=== PATIENT | male | born 1960 | race Caucasian/White ===

== ENCOUNTER 2016-11-30 13:46 | Emergency (ER) | payer OTHER ==
[2016-11-30 13:52] VITALS: TEMP 98.1
[2016-11-30 14:13] LABS: COLOR YELLOW; LEUKOCYTE ESTERASE,URINE NEGATIVE (NEGATIVE); NITRITE,URINE NEGATIVE (NEGATIVE)
--- NOTE | 2016-11-30 14:28 | EDPHY ---
H & P Time Seen by Provider: 11/30/16 14:11 HPI/ROS: Chief complaint. Abdominal pain HPI. 56-year-old male with left flank pain and left abdominal pain that began at 3:00 a.m.. It awoke him from sleep. Initially he thought it was a pulled muscle however did not injure himself doing his usual work out last evening. No pain with twisting or movement. He can't get comfortable. No urinary symptoms. No fever. No vomiting or diarrhea. He has a history of kidney stones and this feels similar. ROS Constitutional. no fever/chills, no weakness Eyes. no problems with vision ENT. no sore throat, no nasal drainage Cardiovascular. no chest pain Respiratory. no shortness of breath, no cough Abdominal. Left flank pain . no problems urinating MS. no calf pain/swelling, no neck/back pain, no joint pain Skin. no rash Lymph. no swollen glands Neuro. no headache, no dizziness, no difficulty walking or with speech Past Medical/Surgical History: Past medical history the kidney stones, prostatitis Social History: , nonsmoker, no alcohol Smoking Status: Never smoked Physical Exam: General Appearance: Alert well-developed male mild distress vital signs are stay Eyes: Pupils equal and round no pallor or injection. ENT, Mouth: Mucous membranes are moist. Respiratory: There are no retractions, lungs are clear to auscultation. Cardiovascular: Regular rate and rhythm. Gastrointestinal: Abdomen is soft and nontender, no masses, bowel sounds normal. Patient shows me tenderness to the left flank area however palpation of this area elicits no tenderness Neurological: Awake and alert, sensory and motor exams grossly normal. Skin: Warm and dry, no rashes. Musculoskeletal: Neck is supple nontender. Extremities symmetrical, full range of motion. Psychiatric: Patient is oriented X 3, there is no agitation. Constitutional: Initial Vital Signs Temperature (C) 36.7 C 11/30/16 13:49 Heart Rate 54 L 11/30/16 13:49 Respiratory Rate 16 11/30/16 13:49 Blood Pressure 134/58 H 11/30/16 13:49 O2 Sat (%) 97 11/30/16 13:49 O2 Delivery Mode Room Air Allergies/Adverse Reactions: No Known Allergies Allergy (Verified 11/30/16 13:47) Home Medications: Medication Instructions Recorded NK [No Known Home Meds] 11/30/16 Medical Decision Making - Diagnostics Imaging: Noncontrast CT abdomen and pelvis reviewed and discussed with Dr. Neely is consistent with constipation. The patient has slightly calcified aorta without evidence of aneurysm or dissection, normal appendix, a right-sided disc herniation in the lumbar spine. There is no evidence for kidney stone Procedures: IV normal saline. Patient declines medication at this time ED Course/Re-evaluation: Re-evaluation at 3:10 p.m. patient is stable. The patient and I discussed lab and imaging study results. We discussed treatment plan including criteria for return and importance of follow-up and further evaluation. He expresses understanding and agreement Differential Diagnosis: Certainly I thought the patient was likely to have kidney stone. I considered pyelonephritis, diverticulitis, abdominal aortic aneurysm. This appears to be constipation and the patient has normal labs and imaging study that is consistent with constipation and does not show an alternative diagnosis - Data Points Laboratory Results: Laboratory Results 11/30/16 14:20 11/30/16 14:20 11/30/16 11/30/16 14:20 13:50 WBC 5.63 10^3/uL (3.80-9.50) RBC 4.99 10^6/uL (4.40-6.38) Hgb 16.0 g/dL (13.7-17.5) Hct 47.1 % (40.0-51.0) MCV 94.4 fL (81.5-99.8) MCH 32.1 pg (27.9-34.1) MCHC 34.0 g/dL (32.4-36.7) RDW 12.3 % (11.5-15.2) Plt Count 197 10^3/uL (150-400) MPV 9.5 fL (8.7-11.7) Neut % (Auto) 65.5 % (39.3-74.2) Lymph % (Auto) 25.6 % (15.0-45.0) [place] % (Auto) 6.7 % (4.5-13.0) Eos % (Auto) 1.1 % (0.6-7.6) Baso % (Auto) 0.7 % (0.3-1.7) Nucleat RBC Rel Count 0.0 % (0.0-0.2) Absolute Neuts (auto) 3.69 10^3/uL (1.70-6.50) Absolute Lymphs (auto) 1.44 10^3/uL (1.00-3.00) Absolute Monos (auto) 0.38 10^3/uL (0.30-0.80) Absolute Eos (auto) 0.06 10^3/uL (0.03-0.40) Absolute Basos (auto) 0.04 10^3/uL (0.02-0.10) Absolute Nucleated RBC 0.00 10^3/uL (0-0.01) Immature Gran % 0.4 % (0.0-1.1) Immature Gran # 0.02 10^3/uL (0.00-0.10) Sodium 141 mEq/L (134-144) Potassium 4.5 mEq/L (3.5-5.2) Chloride 103 mEq/L (97-110) Carbon Dioxide 28 mEq/l (22-31) Anion Gap 10 mEq/L (8-16) BUN 29 H mg/dL (7-23) Creatinine 1.0 mg/dL (0.7-1.3) Estimated GFR > 60 Glucose 91 mg/dL (70-100) Calcium 9.3 mg/dL (8.5-10.4) Urine Color YELLOW Urine Appearance CLEAR Urine pH 5.0 (5.0-7.5) Ur Specific [place] 1.027 (1.002-1.030) Urine Protein NEGATIVE (NEGATIVE) Urine Ketones NEGATIVE (NEGATIVE) Urine Blood NEGATIVE (NEGATIVE) Urine Nitrate NEGATIVE (NEGATIVE) Urine Bilirubin NEGATIVE (NEGATIVE) Urine Urobilinogen NEGATIVE EU (0.2-1.0) Ur Leukocyte Esterase NEGATIVE (NEGATIVE) Ur Culture Indicated? NOT INDICATED (NI) Urine Glucose NEGATIVE (NEGATIVE) Departure - Departure Disposition: Home, Routine, Self-Care Clinical Impression: Abdominal pain Qualifiers: Abdominal location: left lower quadrant Qualifier Code: (R10.32) Left lower quadrant pain Condition: Good Instructions: Constipation (ED) Additional Instructions: Increased fluids including fruit and prune juice. Ducalox (Bisacodyl), Docusate , Magnesium citrate from pharmacy as directed for constipation. Return for worsening pain, fever, vomiting. Recheck in 1 day if not improving Referrals: Eduardo Churchill, [Primary Care Provider] - 1 day, if not improved
[2016-11-30 14:41] LABS: % IMMATURE GRANULYOCYTES 0.4 % (0.0-1.1); ABSOLUTE IMMATURE GRANULOCYTES 0.02 10^3/uL (0.00-0.10); ADD DIFF? NO; ADD MORPH? NO; ADD SCAN? NO; ATYPICAL LYMPHOCYTE FLAG 10 (0-99); FRAGMENT RBC FLAG 0 (0-99); HEMATOCRIT 47.1 % (40.0-51.0); LEFT SHIFT FLG 0 (0-99); LIPEMIA HEMOLYSIS FLAG 90 (0-99); MEAN CELL HEMOGLOBIN 32.1 pg (27.9-34.1); MEAN CELL VOLUME 94.4 fL (81.5-99.8); MEAN PLATELET VOLUME 9.5 fL (8.7-11.7); PLATELET CLUMPS FLAG 0 (0-99); PLATELET COUNT 197 10^3/uL (150-400); RED BLOOD CELL COUNT 4.99 10^6/uL (4.40-6.38); RED CELL DISTRIBUTION WIDTH 12.3 % (11.5-15.2)
[2016-11-30 14:47] LABS: ANION GAP 10 mEq/L (8-16); CALCIUM 9.3 mg/dL (8.5-10.4); CARBON DIOXIDE 28 mEq/l (22-31); CHLORIDE 103 mEq/L (97-110); GLOMERULAR FILTRATION RATE > 60; GLUCOSE 91 mg/dL (70-100); POTASSIUM 4.5 mEq/L (3.5-5.2); SODIUM 141 mEq/L (134-144)
--- NOTE | 2016-11-30 15:11 | CT ---
CT Abdomen and Pelvis (Without Contrast) at 1449 hours History: Left-sided abdominal pain, history of nephrolithiasis. Comparison: CT of April 2014. Technique: Spiral images were acquired from the upper abdomen through the pelvis without intravenous or oral contrast, which limits the study. Dose reduction techniques were utilized. Findings: Abdomen: Bilateral kidneys demonstrate no nephrolithiasis or hydronephrosis. No perinephric fluid, ne phrolithiasis or ureterolithiasis. No pneumoperitoneum or ascites. No hepatosplenomegaly. Adrenals are not enlarged. No peripancreatic f luid. Moderate stool throughout the colon, consistent with constipation. No diverticulitis or colitis. Appe ndix appears normal without inflammatory changes. Mild atherosclerotic aorta without aneurysm. No significant adenopathy. Pelvis: No evidence of distal ureteral calculi, hydroureter or bladder calculi. Prostate calcificati ons identified with the prostate measuring 4.5 x 3.7 cm. No bladder calculi. L4-L5 right paramedian disk herniation, resulting in mild central canal stenosis. L2-L3 moderate dege nerative disk disease and degenerative retrolisthesis with disk bulge, resulting in mild central aly l stenosis. Impression: 1. No nephrolithiasis or hydronephrosis. 2. Atherosclerotic aorta without aneurysm. 3. Constipation. 4. 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 5. Prostate calcifications. Findings and recommendations discussed with Emergency Department physician, Dr. Gary Johnson at 1505 hours today. Final report concurs with initial preliminary interpretation. Attention: This CT examination is specifically designed to evaluate patients who are clinically susp ected of having acute obstructive uropathy. This examination does not use radiographic contrast, and as such, provides only a limited evaluation of the abdomen, pelvis and retroperitoneum. If there is further clinical suspicion for pathological conditions other than obstructive uropathy, a complete C T evaluation of the abdomen and pelvis utilizing intravenous, oral, and rectal contrast should be con sidered.
[2016-11-30 15:29] VITALS: BP 138/62; PULSE 58; RESP 18; O2SAT 98
== END 2016-11-30 15:29 | disposition home or self-care (01) ==
DX: R10.32 Left lower quadrant pain (principal)

== ENCOUNTER → 2018-04-26 | Outpatient (CLI) | payer OTHER | LOC: BMCIMAGING 09:27 | PROVIDERS: ATTEND Family Medicine | DX: J98.4 Other disorders of lung (principal) ==